=== PATIENT | male | born 1995 | race Caucasian/White ===

== ENCOUNTER 2017-05-09 04:12 | Emergency (ER) | payer OTHER ==
[~2017-05-09] VITALS: Ht 190.5 cm; Wt 105.5 kg
[2017-05-09] MEDS ORDERED: DIPH,PERTUSS(ACELL),TET VAC/PF 0.5 ML IM-VACC ONE ×2 (04:59→05:00)
[2017-05-09] MEDS ORDERED: LIDOCAINE 1%, 20ML ONE (04:59)
[2017-05-09] MEDS ORDERED: LIDOCAINE 1%, 20ML SQ ONE (05:00)
[2017-05-09] MEDS ORDERED: BACITRACIN ZINC OINT 500U/GM, 0.9 GM ONE (06:03)
[2017-05-09 06:07] VITALS: BP 137/57
== END 2017-05-09 06:38 | disposition home or self-care (01) ==
LOC: ED 06:11
DX: S02.2XXA Fracture of nasal bones, initial encounter for closed fracture (principal); S01.01XA Laceration without foreign body of scalp, initial encounter; F10.129 Alcohol abuse with intoxication, unspecified; W19.XXXA Unspecified fall, initial encounter; Y93.89 Activity, other specified; Y92.89 Other specified places as the place of occurrence of the external cause; Y99.8 Other external cause status
CPT/HCPCS: 12002; 70450; 90471; 90715; 99284

== ENCOUNTER 2017-05-18 17:50 | Emergency (ER) | payer OTHER ==
[~2017-05-18] VITALS: Ht 190.5 cm; Wt 103.0 kg
[2017-05-18 17:59] VITALS: BP 188/62
== END 2017-05-18 18:14 | disposition home or self-care (01) ==
LOC: ED 18:08
DX: S01.01XD Laceration without foreign body of scalp, subsequent encounter (principal); F19.10 Other psychoactive substance abuse, uncomplicated; X58.XXXD Exposure to other specified factors, subsequent encounter
CPT/HCPCS: 99281